=== PATIENT | female | born 1940 | race Caucasian/White ===

== ENCOUNTER → 2021-02-25 | Outpatient (CLI) | payer MEDICARE, BC ==
--- NOTE | 2021-02-25 12:37 | US ---
EXAMINATION TYPE: US abdomen complete DATE OF EXAM: 02/25/2021 COMPARISON: NONE CLINICAL HISTORY: R10.11 Right upper quadrant abdominal pain. Patient stated has epigastric pain that radiates from left to right abdomen and noted after meals x 1 year; takes medication for HTN, fibrom yalgia. EXAM MEASUREMENTS: Liver Length: 11.8 cm Gallbladder Wall: 0.2 cm CBD: 0.5 cm Spleen: 9.3 cm Right Kidney: 9.7 x 4.6 x 3.8 cm Left Kidney: 10.7 x 5.1 x 5.0 cm Pancreas: Homogeneous with tail obscured by overlying bowel gas Liver: no masses are seen , mildly heterogeneous Gallbladder: wnl Evidence for sonographic Aguilar's sign: no CBD: wnl Spleen: wnl Right Kidney: right cortical cyst seen mid lower pole =1.3 x 1.4 x 1.2cm Left Kidney: No masses are seen Upper IVC: wnl Abd Aorta: size is wnl; intimal wall thickening is noted intermittently throughout Visualized portion of pancreas and aorta are unremarkable. Liver within normal limits. There is incidental exophytic 1.3 cm thin-walled cyst lower pole right ki dney. Mild fullness left renal pelvis towards end of study. IMPRESSION: Possible mild left-sided hydronephrosis. Consider follow-up contrast enhanced CT to [facility] evaluate.
== END | disposition home or self-care (01) ==
LOC: RADUSWWP 11:00
PROVIDERS: ATTEND Internal Medicine
DX: R10.11 Right upper quadrant pain (principal)
CPT/HCPCS: 76700

== ENCOUNTER → 2023-11-27 | Outpatient (CLI) | payer MEDICARE, BC ==
[2023-11-27 14:42] LABS: African American GFR (CKD) >90 (>60 ml/min/1.73 sqM); Blood Urea Nitrogen 18 mg/dL (7-17); Non-African American GFR(CKD) 85 (>60 ml/min/1.73 sqM)
--- NOTE | 2023-11-27 18:12 | CT ---
EXAMINATION TYPE: CT abdomen w con CT DLP: 642.0 mGycm, Automated exposure control for dose reduction was used. DATE OF EXAM: 11/27/2023 3:09 PM COMPARISON: CT abdomen pelvis most recent from CLINICAL INDICATION:Female, 83 years old with history of R10.11 RUQ pain; RUQ pain TECHNIQUE: Axial CT abdomen w con;Sagittal and coronal reformats were created on a separate workstat ion. Contrast used:100 mL of Isovue 300 with IV Contrast, (none if empty) Oral contrast used: with Oral Contrast (none if empty) FINDINGS: LOWER CHEST: Unremarkable ABDOMEN LIVER: Unremarkable GALLBLADDER AND BILE DUCTS: Unremarkable. No CT evidence of cholecystitis. PANCREAS: Unremarkable. SPLEEN: Unremarkable. ADRENAL GLANDS: Unremarkable. KIDNEYS AND URETERS: No evidence of hydronephrosis or renal calculus. The ureters are unremarkable. STOMACH AND BOWEL: Stomach and duodenum are unremarkable. No evidence of bowel obstruction. No evidence of free fluid. IMPRESSION: 1. No CT evidence of acute process. No finding is seen that would explain the patient's symptoms.
== END | disposition home or self-care (01) ==
LOC: RADCTMAIN 12:58
PROVIDERS: ATTEND Family Medicine
DX: R10.11 Right upper quadrant pain (principal); I10 Essential (primary) hypertension
CPT/HCPCS: 82565; 84520; 74160; 36415; Q9967

== ENCOUNTER → 2023-12-06 | Outpatient (CLI) | payer MEDICARE, BC ==
--- NOTE | 2023-12-11 23:31 | XR ---
EXAMINATION TYPE: XR cervical spine 5 views comp DATE OF EXAM: 12/06/2023 COMPARISON: None HISTORY: 83-year-old female [id number] HEADACHE, UNSPECIFIED M54.2 CERVICALGIA FINDINGS: No predental space widening or prevertebral soft tissue swelling. Reversal normal cervical lordosis. Bulky anterior spondylosis is present C4-C7 levels with moderate degenerative disc disease here. Trace grade 1 anterolisthesis C3-C4 and C7-T1. On the right, change resulting in moderate to severe bony neural foraminal narrowing at C4-C5. Modera te C3-C4. Mild at C2-C3 and C5-C6. On the left, changes result in moderate bony neuroforaminal narrowing at C3-C4. Degenerative changes along the lateral mass articulations of C1-C2. IMPRESSION: 1. Reversal of the normal cervical lordosis with bulky DISH C4-C7 levels and moderate degenerative di sc disease here. 2. Trace grade 1 anterolisthesis at C3-C4 and C7-T1. 3. Moderate to severe bony neural foraminal narrowing on the right at C4-C5 and moderate on both side s at C3-C4.
== END | disposition home or self-care (01) ==
LOC: RADXRMAIN 10:46
PROVIDERS: ATTEND Family Medicine
DX: M50.321 Other cervical disc degeneration at C4-C5 level (principal); M43.12 Spondylolisthesis, cervical region
CPT/HCPCS: 72050

== ENCOUNTER → 2024-01-30 | Outpatient (CLI) | payer MEDICARE, BC ==
--- NOTE | 2024-01-31 22:20 | NM ---
EXAMINATION TYPE: NM hepatobiliary w CCK DATE OF EXAM: 01/30/2024 COMPARISON: NONE INDICATION: Right upper quadrant pain TECHNIQUE: After the intravenous administration of 4.7 mCi Tc 99m Mebrofenin hepatobiliary scintigrap hy is performed. Images were obtained immediately post injection. FINDINGS: There is prompt uptake and excretion of radiotracer by the liver. Extrahepatic ducts are identified at 6 minutes. The gallbladder is visualized within 12 minutes. Small bowel activity is noted within 48 minutes. At one hour CCK was administered, patient was injected with 1.5 mcg of Kinevac, and gallbladder eject ion fraction is calculated at 56 %, which is in the normal range.. (Normal >35% and <80%.). IMPRESSION: 1. Unremarkable hepatobiliary study.
== END | disposition home or self-care (01) ==
LOC: RADNMMAIN 06:58
PROVIDERS: ATTEND Family Medicine
DX: R10.11 Right upper quadrant pain (principal)
CPT/HCPCS: 78227; A9537; J2805

== ENCOUNTER → 2024-03-15 | Outpatient (CLI) | payer MEDICARE, BC | END | disposition home or self-care (01) | LOC: LABPRL 12:00 | PROVIDERS: ATTEND Pediatrics | CPT/HCPCS: 87070 ==

== ENCOUNTER → 2024-03-27 | Outpatient (CLI) | payer MEDICARE, BC | END | disposition home or self-care (01) | LOC: LABPAT 10:47 | PROVIDERS: ATTEND Orthopaedic Surgery Orthopaedic Surgery of the Spine | DX: Z22.322 Carrier or suspected carrier of Methicillin resistant Staphylococcus aureus | CPT/HCPCS: 36415; 86850; 86900; 86901 ==

== ENCOUNTER 2024-04-03 09:40 | Day surgery (SDC) | payer MEDICARE, BC ==
[~2024-04-03 09:40] MED LIST: LIDOCAINE 1% (10MG/ML) FOR IV START INTRADERMA PRN; MIDAZOLAM 2 MG/2 ML VIAL IV PRN; fentaNYL (PF) 50 MCG/ML 2 ML AMP IVP PRN
[2024-04-03] MEDS: ONDANSETRON 4 MG/2 ML VIAL IVP ONE (10:34)
[2024-04-03] MEDS: LACTATED RINGERS 1,000 ML IV SCH (10:34)
[2024-04-03] MEDS: LACTATED RINGERS 1,000 ML IV ONE ×2 (10:36→12:13)
[2024-04-03] MEDS ORDERED: LIDOCAINE 1% INJ 10MG/ML (20 ML MDV) ONE (11:01)
[2024-04-03] MEDS ORDERED: HYDROmorphone (PF) 1 MG/ML ONE (11:01)
[2024-04-03] MEDS ORDERED: ROCURONIUM 10 MG/ML (5 ML VIAL) IV ONE (11:01)
[2024-04-03] MEDS ORDERED: SUCCINYLCHOLINE CHLORIDE 200 MG/10 ML VIAL IV ONE (11:01)
[2024-04-03] MEDS ORDERED: GLYCOPYRROLATE 0.2 MG/ML 2 ML VIAL ONE (11:01)
[2024-04-03] MEDS ORDERED: NEOSTIGMINE 1 MG/ML 10 ML VIAL ONE (11:01)
[2024-04-03] MEDS ORDERED: PROPOFOL 10 MG/ML 20 ML VIAL IV ONE (11:01)
[2024-04-03] MEDS ORDERED: KETAMINE HCL IN 0.9 % NACL 50 MG/5 ML SYRINGE ONE (11:01)
[2024-04-03] MEDS ORDERED: ePHEDrine 50 MG/ML 1 ML VIAL ONE (11:01)
[2024-04-03] MEDS ORDERED: fentaNYL (PF) 50 MCG/ML 2 ML AMP ONE (11:01)
[2024-04-03] MEDS: THROMBIN (BOVINE) 5,000 UNIT VIAL TOPICAL ONE (11:05)
[2024-04-03] MEDS: LIDOCAINE 1%-EPI 1:100,000 20 ML VIAL SQ ONE (11:05)
[2024-04-03] MEDS: ceFAZolin 1,000 MG in SODIUM CHLORIDE 0.9% IRRIGATIO 1,000 ML IRRIGATION PRN (11:14)
[2024-04-03] MEDS ORDERED: ONDANSETRON 4 MG/2 ML VIAL IVP PRN (13:34)
[2024-04-03] MEDS ORDERED: BENZOCAINE/MENTHOL LOZENG 1 EACH LOZENGE MUCOUS MEM PRN (13:34)
[2024-04-03] MEDS ORDERED: ACETAMINOPHEN TAB 325 MG TAB PO PRN (13:34)
--- NOTE | 2024-04-03 13:37 | XR ---
EXAMINATION TYPE: XR cervical spine 1V, XR cervical spine 1V, XR cervical spine 1V DATE OF EXAM: 04/03/2024 COMPARISON: NONE HISTORY: Intraoperative the cervical spine evaluation TECHNIQUE: 3 portable crosstable lateral views of the cervical spine are obtained at various stages o f the patient's surgical intervention. FINDINGS: 1. Intraoperative localization device is noted anteriorly at the 5- 6 level. 2. There is been interval anterior spur removal as well as intervertebral spacer is noted at C4-5 C5- 6 and C6-7. 3. Changes of ACDF extending from C4 through C7. IMPRESSION: As above
--- NOTE | 2024-04-03 13:43 | P.OP ---
Date of Procedure: 04/03/24 Preoperative Diagnosis: Severe cervical stenosis C4-5 C5-6 C6-7, cervical myelopathy, cervical radiculopathy, upper extremity weakness, severe degenerative disc disease, large anterior cervical osteophytes, cervical kyphosis Postoperative Diagnosis: Same Anesthesia: GETA Pathology: none sent Condition: stable Disposition: PACU Description of Procedure: BRIEF OPERATIVE NOTE Preoperative Diagnosis:Severe cervical stenosis C4-5 C5-6 C6-7, cervical myelopathy, herniated nucleus pulposus C4-5 C5-6 C6-7 cervical radiculopathy, upper extremity weakness, severe degenerative disc disease, large anterior cervical osteophytes, cervical kyphosis Postoperative Diagnosis: Same Procedure: Anterior cervical decompression with discectomy and fusion C4-5 C5-6 C6-7 Placement of interbody graft C4-5 C5-6 C6-7 Application of anterior cervical plate C4-5-6 7 Removal of large anterior cervical osteophytes C4-5 C5-6 C6-7, beyond the scope of preparation for discectomy Surgeon: Dr. Bustamante Economic Development Specialist: Raz ANTHONY who is present throughout the entire the case persistence during positioning, dissection, exposure, visualization, and all crucial elements of the case as well as closure. Anesthesia: General anesthesia Estimated blood loss: 100 cc Complications: None apparent Components implanted: K2M [place] anterior cervical plate system with screws and Vikos interbody allograft bone graft with DBX bone putty Disposition: To recovery room in good stable condition. OPERATIVE INDICATIONS The patient has had long-standing issues in their neck and upper extremities. She has been having worsening symptoms in her upper extremities with weakness in her upper extremities. She is developing some evidence of cervical myelopathy. The patient has been through conservative treatment. She was found to have severe cervical stenosis at multiple levels particularly at C4-5 C5-6 C6-7 with disc herniation that correlated well with her neck and upper extremity symptoms and symptoms of myelopathy. We discussed various treatment options including surgery, and the patient wishes to proceed with surgery We discussed the risk, patient's alternatives and benefits of surgery including but not limited to, risk of bleeding risk of infection, risk of need for further surgery, risk of decreased, loss of motion, muscle function, malunion nonunion, hardware failure, nerve damage, paralysis, heart attack, and . OPERATIVE SUMMARY After discussing all the risks, patient alternatives and benefits at length, the patient elected to proceed with surgical intervention, signed informed consent, and presented for their procedure. The patient was seen and examined in the preoperative holding area and the surgical site was marked. The patient was given antibiotics and brought to the operating room. The patient was positioned on the operating room table in a supine position being careful to pad any bony prominences and pressure points. The patient was sedated and intubated by anesthesia in standard fashion. Once the airway and C- spine were stabilized the patient's arms were padded and tucked at her side, with her shoulders gently taped. The head was placed in a donut pad with the neck in good neutral alignment and position. We were careful to maintain the patient's cervical spine and good neutral alignment and position throughout. The patient was prepped and draped in a normal standard fashion. An appropriate timeout and keystone protocol performed. We were able to proceed with the surgery. The local wound area was infiltrated with local anesthetic. An incision was made transversely approximately 2-1/2 cm over the appropriate levels at C6. Dissection was taken down subcutaneously to the level of the platysma which was split in line with its fibers. Dissection was taken with a carotid approach, with the trachea and esophagus medial and the carotid sheath laterally. We dissected down to the anterior surface of the vertebral bodies. Intraoperative x-ray was taken which showed a marker at the appropriate level. With the appropriate level positively confirmed, we were able to proceed with discectomy at the appropriate levels first at C4-5 and then at C5-6 and then at C6-7. All of the operative levels were exposed appropriately. There were massive anterior cervical osteophytes at each of the levels particulates he is C5-6 and C6-7. We had to do a great deal of taking down the anterior cervical osteophytes just to expose the anterior aspect of the vertebral bodies. The patient had all their twitches back, and there was no evidence of recurrent laryngeal issue. The wound was copiously irrigated and suctioned dry as had been done periodically throughout the case. At the appropriate level/levels, starting at C4-5 and then moving to C5-6 and then C6-7 I established an annulotomy with an 11 blade scalpel. A discectomy was performed with a combination of pituitary rongeurs, curettes, a high-speed bur, and Kerrison rongeurs. The posterior longitudinal ligament was taken down as were any posterior osteophytes. This gave good central and bilateral foraminal decompre ssion. There is no evidence of any dural tear or leak. The endplates were prepared with a high-speed bur. With the endplates in good parallel position, I was able to size for the appropriate size interbody graft. The wound was irrigated and suctioned dry the graft was prepared and malleted into position. It had good alignment and position with the anterior surface flush with the anterior surface of the vertebral bodies. This was done similarly the appropriate levels. With the grafts intact, I was able to measure and contour and appropriate sized plate. The plate was positioned at the midline over the appropriate levels at C4-5-6 and 7. Screw holes were established with a hand drill and drill guide. Screws were placed in good alignment and position with excellent bony purchase. They were seated under the locking device. The construct was checked and found to be stable. Intraoperative x-ray was taken which showed good alignment and position of the implants at the appropriate levels. There was no evidence of any dural tear or leak. Good hemostasis was maintained. The wound was copiously irrigated and suctioned dry as had been done periodically throughout the case. The platysma was closed with absorbable suture. The subcutaneous tissue was closed. The subcuticular tissue was closed with absorbable suture. The wound was cleaned and dried and dressed appropriately. A soft cervical collar was placed appropriately. The patient was woken up by anesthesia, extubated, transferred back gently to their hospital bed and brought to the recovery room in good stable condition. The patient will be admitted to the hospital for appropriate postoperative care, medical management and monitoring. We will continue to follow them closely about the postoperative course.
[2024-04-03] MEDS: HYDROmorphone 0.5 MG/0.5 ML SYRINGE IVP PRN ×2 (13:56→21:21)
[2024-04-03] MEDS: DEXAMETHASONE SOD PHOSPHATE 4 MG/ML 1 ML VIAL IV ONE (14:55)
[2024-04-03] MEDS: SODIUM CHLORIDE 0.9% 1,000 ML IV SCH (15:19)
[2024-04-03 20:28] VITALS: PULSE 71
[2024-04-04 01:35] VITALS: BP 127/83; RESP 14; TEMP 98
[2024-04-04] MEDS: LEVOTHYROXINE 50 MCG TAB PO SCH (05:39)
[2024-04-04] MEDS: CITALOPRAM HYDROBROMIDE 20 MG TAB PO SCH (08:10)
[2024-04-04] MEDS: HYDROcodone/APAP 5-325MG 1 EACH TAB PO PRN (08:11)
[2024-04-04] MEDS: amLODIPine 5 MG TAB PO SCH (08:11)
--- NOTE | 2024-04-04 10:30 | P.DS ---
Providers Date of admission: 04/03/2024 Expected date of discharge: 04/04/24 Attending physician: Shayne Bustamante Primary care physician: Jaime Lu - Discharge Diagnosis(es) (1) Cervical stenosis of spinal canal Current Visit: Yes Status: Acute (2) Cervicalgia Current Visit: Yes Status: Acute (3) Radicular pain Current Visit: Yes Status: Acute (4) S/P cervical spinal fusion Current Visit: Yes Status: Acute (5) Hypertension Current Visit: Yes Status: Acute (6) Hypothyroidism Current Visit: Yes Status: Acute (7) Degenerative cervical disc Current Visit: Yes Status: Acute (8) Myelopathy Current Visit: Yes Status: Acute (9) Cervical osteophyte Current Visit: Yes Status: Acute (10) Upper extremity weakness Current Visit: Yes Status: Acute Hospital Course: Patient is a very pleasant 83-year-old female who is status post C4-5, C5-6, and C6-7 anterior cervical decompression and fusion performed yesterday. She is continue to keep her hard cervical collar intact. She is progressing well postoperatively. She was able to ambulate to the restroom. She feels her ambulation status has improved already postoperatively. She feels more steady on her feet. She is not currently complaining of the upper extremity radiculopathy bilaterally. She's been able to eat and void without difficulty. Her pain is adequately control. She feels she is ready for discharge home today. Patient was cleared preoperatively by her primary care provider. Patient must keep hard cervical collar intact at all times except while bathing. Patient should avoid overhead activities. No lifting greater than 10 pounds. Avoid excessive cervical flexion, extension, and rotation. Take medications as prescribed. MAPS is reviewed. Prescriptions for hydrocodone 5 mg/325 mg take 1 tab every 6 hours as needed for acute pain, dispensed #28 and baclofen 10 mg, 1 tab, 3 times a day, as needed for muscle spasm, dispensed #60. Prescriptions were sent to her regular pharmacy. Patient will follow up with Raz Ram PA-C or Dr.Neil Bustamante at [facility] in approximately 2-3 weeks for further evaluation. Patient's other medical diagnoses include hypertension and hypothyroidism. She may resume her other previously prescribed home medications while avoiding anti-inflammatory medications over the next 6 weeks post operatively Physical exam on day of discharge: Patient is awake, alert, oriented 3 Vital signs appears stable Good inspiration and expiration Hard cervical collar intact Optifoam dressing is clean, dry, and intact over the anterior cervical spine Patient is able to perform adequate good range of motion of her bilateral upper extremities No pain with palpation around the surgical site Procedures: Status post C4-5, C5-6, and C6-7 anterior cervical decompression and fusion Patient Condition at Discharge: Stable Plan - Discharge Summary Discharge Rx Participant: No New Discharge Prescriptions: New HYDROcodone/APAP 5-325MG [[place] 5] 1 each PO Q6HR PRN #28 tab PRN Reason: Pain Baclofen 10 mg PO TID PRN #60 tab PRN Reason: Spasms No Action Levothyroxine Sodium [Synthroid] 50 mcg PO DAILY amLODIPine [Norvasc] 5 mg PO DAILY Citalopram Hydrobromide [Citalopram HBr] 40 mg PO DAILY Celecoxib 100 mg PO BID PRN PRN Reason: Pain Discharge Medication List Celecoxib 100 mg PO BID PRN 03/28/24 [History] Citalopram Hydrobromide [Citalopram HBr] 40 mg PO DAILY 03/28/24 [History] Levothyroxine Sodium [Synthroid] 50 mcg PO DAILY 03/28/24 [History] amLODIPine [Norvasc] 5 mg PO DAILY 03/28/24 [History] Baclofen 10 mg PO TID PRN #60 tab 04/04/24 [Rx] HYDROcodone/APAP 5-325MG [[place] 5] 1 each PO Q6HR PRN #28 tab 04/04/24 [Rx] Follow up Appointment(s)/Referral(s): Shayne Bustamante DO [Doctor of Osteopathic Medicine] - 04/15/24 1:00 pm Activity/Diet/Wound Care/Special Instructions: Patient is to wear hard cervical collar at all times except bathing. Keep site clean. May shower with waterproof Tegaderm intact. Do not soak in a tub. After 72 hours postoperatively, patient May remove dressing and then may shower with area uncovered. Leave glue intact and allow it to fray off on its own. May ambulate as tolerated. Avoid heavy or rigorous activity. No repetitive bending twisting or lifting. No overhead work. Discharge Disposition: HOME SELF-CARE
== END 2024-04-04 10:36 | disposition home or self-care (01) ==
LOC: OR 09:40 → 4SSUR 13:38 → OR 04-04 10:36
PROVIDERS: ATTEND Orthopaedic Surgery Orthopaedic Surgery of the Spine
DX: M48.02 Spinal stenosis, cervical region (principal); M50.021 Cervical disc disorder at C4-C5 level with myelopathy; M50.121 Cervical disc disorder at C4-C5 level with radiculopathy; M25.78 Osteophyte, vertebrae; M40.202 Unspecified kyphosis, cervical region; M43.12 Spondylolisthesis, cervical region; G95.89 Other specified diseases of spinal cord; I10 Essential (primary) hypertension; E03.9 Hypothyroidism, unspecified; Z87.891 Personal history of nicotine dependence; Z79.890 Hormone replacement therapy; Z79.899 Other long term (current) drug therapy
CPT/HCPCS: 72020